=== PATIENT | male | born 1950 | race Caucasian/White ===

== ENCOUNTER 2019-01-04 20:20 | Inpatient (IN) ==
--- NOTE | 2019-01-04 21:51 | Diag Imaging Result Doc PS360 ---
EXAM: CHEST-1 VIEW HISTORY: COUGH TECHNIQUE: Chest single view COMPARISON: 02/08/2015 FINDINGS: The lungs are hyperexpanded. No cardiomegaly. No pulmonary edema. There are increased interstitial markings in the upper lungs. No pleural effusions identified. Scoliosis. IMPRESSION: 1.Increased interstitial markings in the upper lungs likely representing fibrosis although there could be small underlying infiltrates. 2.Emphysema Electronically signed by Krishna Maciel 01/04/2019 9:48 PM
[2019-01-04] MEDS ORDERED: NS 1,000 ML IV ONE ×2 (22:13)
[2019-01-04 22:35] LABS: INFLUENZA A NEGATIVE (NEGATIVE); INFLUENZA B NEGATIVE (NEGATIVE)
[2019-01-04 23:42] LABS: INR 1.07; PROTIME 14.5 Seconds (11.0-16.0)
[2019-01-04 23:43] LABS: PTT 36.4 Seconds (22.3-41.8)
[2019-01-04 23:44] LABS: BASO# 0.01 X1000 (0.0-0.2); BASO% 0.1 % (0.0-0.8); HEMATOCRIT 33.3 % (42.0-52.0); HEMOGLOBIN 11.5 g/dL (14.0-18.0); IMM GRAN# 0.09 X1000 (0.0-0.04); IMM GRAN% 0.5 % (0.0-0.5); LYMPH# 0.23 X1000 (1.2-3.4); LYMPH% 1.3 % (20.5-51.1); MCH 32.2 PG (27-31); MCHC 34.5 g/dL (33-37); MCV 93.3 FL (81-99); MONO# 1.48 X1000 (0.11-0.59); MONO% 8.4 % (1.7-9.3); MPV 9.6 FL (7.4-10.4); NEUT# 15.79 X1000 (1.4-6.5); NEUT% 89.7 % (42.2-75.2); PLT 163 X1000 (130-400); RBC 3.57 XMIL (4.7-6.1); RDW 12.6 % (11.5-14.5)
[2019-01-04 23:53] LABS: AGAP 12; ALBUMIN 4.3 g/dL (3.5-5.0); ALKALINE PHOSPHATASE 104 U/L (32-122); BUN 8 mg/dL (8-22); CALCIUM 8.1 mg/dL (8.8-10.2); CHLORIDE 92 mmol/L (98-107); CK PROFILE 119 U/L (24-204); COSMO 264; CREATININE 0.4 mg/dL (0.7-1.2); ESTIMATED GFR > 60; GLUCOSE 92 mg/dL (70-104); GOT 41 U/L (10-34); GPT 33 U/L (10-44); MAGNESIUM 1.7 mg/dL (1.5-2.7); POTASSIUM 4.6 mmol/L (3.5-5.1); SODIUM 133 mmol/L (136-145); TCO2 30 mmol/L (25-35); TOTAL PROTEIN 6.1 g/dL (6.3-8.3)
[2019-01-05 00:20] LABS: BANDS 11 % (0-1); MONO 3 % (1-9); SEGS 85 % (42-75)
[2019-01-05 00:46] LABS: BILIRUBIN URINE NEGATIVE (NEGATIVE); BLOOD URINE NEGATIVE (NEGATIVE); CLARITY CLEAR (CLEAR); COLOR YELLOW; GLUCOSE URINE NEGATIVE (NEGATIVE); KETONE URINE NEGATIVE (NEGATIVE); LEUKOCYTES URINE NEGATIVE (NEGATIVE); NITRITE URINE NEGATIVE (NEGATIVE); PROTEIN URINE NEGATIVE (NEGATIVE); UROBILINOGEN URINE NORMAL
[2019-01-05 00:49] LABS: URINE BACTERIA 2+ /HFP; URINE CAST NONE SEEN /LPF; URINE CRYSTAL NONE SEEN /HPF; URINE EPITHELIAL CELLS <10 /HPF (<10); URINE RBC <10 /HPF (<10); URINE SOURCE CLEAN CATCH; URINE WBC <10 /HPF (<10); URINE YEAST NONE SEEN /HPF
[2019-01-05] MEDS ORDERED: NS 1,000 ML IV ONE (00:49)
[2019-01-05] MEDS ORDERED: LEVAQUIN PO ONE (00:50)
[2019-01-05] MEDS ORDERED: VANCOMYCIN 1 GM/NS 1 GM/250 ML IVPB IV ONE (00:50)
[2019-01-05] MEDS ORDERED: TYLENOL PO PRN (04:00)
--- NOTE | 2019-01-05 06:54 | EKG Report ---
Test Performed on : 01/04/2019 9:34:59 PM Test Reason : cp Blood Pressure : / mmHG Vent. Rate : 070 BPM Atrial Rate : 070 BPM P-R Int : 166 ms QRS Dur : 056 ms QT Int : 434 ms P-R-T Axes : 082 090 089 degrees QTc Int : 468 ms Normal sinus rhythm. Rightward axis ST elevation, consider early repolarization, pericarditis, or injury Nonspecific ST abnormality Abnormal ECG When compared with ECG of 08-FEB-2015 20:20, Criteria for Anterolateral infarct are no longer present ST elevation now present in Inferior leads Unconfirmed Result
[2019-01-05 09:37] LABS: BASO# 0.01 X1000 (0.0-0.2); BASO% 0.1 % (0.0-0.8); HEMATOCRIT 29.6 % (42.0-52.0); HEMOGLOBIN 10.1 g/dL (14.0-18.0); IMM GRAN# 0.17 X1000 (0.0-0.04); LYMPH# 0.35 X1000 (1.2-3.4); LYMPH% 2.1 % (20.5-51.1); MCH 31.7 PG (27-31); MCHC 34.1 g/dL (33-37); MCV 92.8 FL (81-99); MONO% 5.9 % (1.7-9.3); MPV 9.4 FL (7.4-10.4); NEUT# 15.29 X1000 (1.4-6.5); NEUT% 90.9 % (42.2-75.2); PLT 121 X1000 (130-400); RBC 3.19 XMIL (4.7-6.1); RDW 12.6 % (11.5-14.5); WBC 16.82 X1000 (4.8-10.8)
--- NOTE | 2019-01-05 09:37 | HISTORY AND PHYSICAL ---
PRIMARY CARE PHYSICIAN: None. CHIEF COMPLAINT: Weakness and a subjective fever for the past 2 days that has progressively worsened. HISTORY OF PRESENTING ILLNESS: This is a 68-year-old male who presents to [facility] ER with complaints of generalized weakness and a subjective fever. It is known that patient has a longstanding history of anorexia nervosa and malnutrition, comes in today 5 feet 9 inches tall and weighing 82 pounds. He is very and cachetic. His workup in the emergency room showed on arrival a temperature of 102.2 degrees, a white blood cell count of 17.60. Chest x-ray showed increased interstitial markings in the upper lobes likely representing fibrosis, although there could be a small underlying infiltrate, so he is being admitted for further evaluation and treatment. PAST MEDICAL HISTORY: Right femur fracture, anorexia nervosa, malnutrition, anemia, coronary artery disease with sick sinus syndrome. PAST SURGICAL HISTORY: Right hip repair. FAMILY HISTORY: Coronary artery disease. SOCIAL HISTORY: Currently lives alone, was a former smoker. Denies any alcohol or illicit drug use. ALLERGIES: Penicillin. HOME MEDICATIONS: He does not take any medications on a routine basis according to the patient. LABORATORY DATA: Showed a white blood cell count of 17.60, hemoglobin 11.5, hematocrit 33.3, platelets 163,000. PT and INR of 14.5 and 1.07. Sodium 133, potassium 4.6, chloride 92, CO2 30, BUN of 8, creatinine 0.4, glucose 92, magnesium 1.7. Cardiac enzyme was negative. Total protein was 6.1, albumin of 4.3. Plasma lactate of 1.6. Urinalysis was negative except for 2+ bacteria. Influenza A and B were both negative. IMAGING: Chest x-ray showed increased interstitial markings in the upper lungs, likely representing fibrosis although there could be small underlying infiltrates and emphysema. REVIEW OF SYSTEMS: He had a subjective fever, generalized weakness. Denied any blurred vision, dizziness, chest pain, coughing, shortness of breath. Denied any abdominal pain, constipation, diarrhea, burning or hurting with urination. PHYSICAL EXAMINATION: VITAL SIGNS: On arrival, he had a temperature of 102.2 degrees, pulse of 81, respirations 18, blood pressure 104/61, saturating 97% on room air. Currently his temperature is down to 98.6 degrees. GENERAL: This is a 68-year-old, thin, cachectic male who is sitting up in the bed eating breakfast and answers questions appropriately. HEENT: Normocephalic and atraumatic. Normal ENT inspection. Oropharynx and nares are clear. EYES: Pupils are equal, round, and reactive to light and accommodation. Extraocular movements are intact. NECK: Normal inspection. Normal range of motion. LUNGS: Clear to auscultation bilaterally with equal lung expansion and chest wall movement. O2 via nasal cannula currently in use. HEART: Regular rate and rhythm. No murmurs, rubs, or gallops. ABDOMEN: Soft, nontender, nondistended. Bowel sounds are present x4 quadrants. MUSCULOSKELETAL: He has 3/5 strength x4 extremities. NEUROLOGICAL: The cranial nerves 2-12 appear grossly intact. ASSESSMENT: 1. Bilateral upper lobe pneumonia. 2. Leukocytosis. 3. Generalized weakness. 4. Anorexia nervosa. 5. Protein calorie malnutrition. PLAN: He was admitted to the hospital medical unit, placed on telemetry. Regular diet with Ensure t.i.d. with meals. We will consult Oliver Filter Operator. We will consult bottom finisher. Blood culture and urine cultures are pending. We will place him on Rocephin 1 gram IV q.24, azithromycin 500 IV q.24. He is on normal saline at 50 mL an hour. We will recheck a CBC and a BMP this a.m. and in the a.m. Further orders after he has been seen by attending. Dictated by OLVIN Johnson for Marco Lancaster MD Addendum: Patient seen and examined by myself. Agree with OLVIN note. It reflects my assessment and plan. Patient is being admitted to hospital for bilateral pneumonia so will start broad spectrum antibiotics and will optimize his nutritional status. Will monitor patient closely. cc: OLVIN Johnson MD [facility]
[2019-01-05 09:40] LABS: AGAP 9; BUN 12 mg/dL (8-22); CALCIUM 7.5 mg/dL (8.8-10.2); CHLORIDE 100 mmol/L (98-107); COSMO 269; CREATININE 0.3 mg/dL (0.7-1.2); ESTIMATED GFR > 60; GLUCOSE 83 mg/dL (70-104); POTASSIUM 3.8 mmol/L (3.5-5.1); SODIUM 135 mmol/L (136-145); TCO2 26 mmol/L (25-35)
[2019-01-05 09:48] LABS: LYMPHS 2 % (21-51); MONO 3 % (1-9); SEGS 95 % (42-75)
[2019-01-05] MEDS: ROCEPHIN 1 GM in NS 50 ML IV SCH (10:05)
[2019-01-05] MEDS: ZITHROMAX 500 MG/NS 500 MG/250 ML IVPB IV SCH (11:01)
[2019-01-05] MEDS: DUONEB (A & A) INH SCH ×4 (11:32→22:49)
[2019-01-06] MEDS: DUONEB (A & A) INH SCH ×6 (03:20→23:33)
[2019-01-06] MEDS: ROCEPHIN 1 GM in NS 50 ML IV SCH (09:09)
[2019-01-06] MEDS: ZITHROMAX 500 MG/NS 500 MG/250 ML IVPB IV SCH (09:49)
[2019-01-06] MEDS ORDERED: LIPOSYN 20% 250 ML IV SCH (10:15)
[2019-01-06 10:17] LABS: BASO# 0.01 X1000 (0.0-0.2); BASO% 0.1 % (0.0-0.8); HEMOGLOBIN 10.8 g/dL (14.0-18.0); IMM GRAN# 0.05 X1000 (0.0-0.04); IMM GRAN% 0.4 % (0.0-0.5); LYMPH# 0.17 X1000 (1.2-3.4); LYMPH% 1.3 % (20.5-51.1); MCH 31.5 PG (27-31); MCHC 33.8 g/dL (33-37); MCV 93.3 FL (81-99); MONO# 0.52 X1000 (0.11-0.59); MONO% 3.9 % (1.7-9.3); MPV 9.4 FL (7.4-10.4); NEUT# 12.74 X1000 (1.4-6.5); NEUT% 94.3 % (42.2-75.2); PLT 135 X1000 (130-400); RBC 3.43 XMIL (4.7-6.1); RDW 12.5 % (11.5-14.5); WBC 13.49 X1000 (4.8-10.8)
[2019-01-06] MEDS ORDERED: LIPID EMULSION 20% IV SCH (10:23)
[2019-01-06 10:34] LABS: AGAP 10; BUN 15 mg/dL (8-22); CALCIUM 7.9 mg/dL (8.8-10.2); CHLORIDE 97 mmol/L (98-107); COSMO 262; CREATININE 0.3 mg/dL (0.7-1.2); ESTIMATED GFR > 60; GLUCOSE 106 mg/dL (70-104); POTASSIUM 3.9 mmol/L (3.5-5.1); SODIUM 130 mmol/L (136-145); TCO2 23 mmol/L (25-35)
[2019-01-06 10:55] LABS: LYMPHS 1 % (21-51); SEGS 99 % (42-75)
[2019-01-06 11:18] LABS: OCCULT BLOOD 1 NEGATIVE (NEGATIVE)
[2019-01-06] MEDS: CLINIMIX E 4.25%-5% SOLUTION 1,000 ML IV SCH (11:46)
--- NOTE | 2019-01-06 12:03 | PROGRESS NOTE ---
DATE: 01/06/2019 SUBJECTIVE: The patient reports breathing better. Denies any other complaints. OBJECTIVE: Vital Signs: Temperature 98.6 degrees, heart rate 70, respiratory rate 16, blood pressure 108/62, O2 saturation 100% on 2 L nasal cannula. General Examination: This is a chronically ill-appearing and cachectic, 68-year-old, male lying in bed, in no acute distress. Cardiovascular Examination: S1 and S2 heard. No murmurs, gallops, or rubs. Regular rate and rhythm. Respiratory Examination: A few coarse breath sounds in both pulmonary bases. Patient is not using any accessory muscles or having work of breathing. Abdomen: Soft, nontender to palpation, nondistended. Bowel sounds present. No organomegaly. Extremities: No clubbing, cyanosis, or edema. Marked muscle waste noted in both extremities. Peripheral pulses present in both legs. Neurological Examination: The patient is alert and oriented x3. Moves 4 extremities. Laboratory Data: White cell count 13.49, hemoglobin 10.8, hematocrit 32.0. BMP is remarkable for sodium 130. Rest of the BMP is normal. ASSESSMENT AND PLAN: 1. Bilateral upper lobe pneumonia. Patient is on Rocephin and azithromycin. He clinically is improving. Definitely noting breathing better. White cell count is getting better as well. At this point, we will continue with the same management. We will continue with DuoNeb every 4 hours. He is now on room air. 2. Protein calorie malnutrition and cachexia. I do not know the reason why this patient is very cachectic but I have a feeling that he has been having a poor appetite for a while. I think I will do an abdomen and pelvis CT, start him on Clinimix and will check HIV test and we will go from there. 3. Disposition. We will continue to monitor this patient closely. cc: Marco Lancaster MD MTDD
--- NOTE | 2019-01-06 14:32 | Diag Imaging Result Doc PS360 ---
EXAM: CT THORAX/ABD/PELVIS W/CON INDICATION: cachexia TECHNIQUE: This exam was performed using automated exposure control, adjustment of mA or kV according to patient size, and/or use of iterative reconstruction technique. COMPARISON: CT abdomen and pelvis dated 07/14/2014. No prior CT chest is available for comparison. FINDINGS: CHEST: There are mild emphysematous changes at the right upper lobe near the apex and the superior aspect of the right lower lobe. There are moderate fibrotic changes at the lung apices. There is a masslike lesion in the superomedial right lower lobe abutting the hilum posteriorly. It exhibits some central cavitation. Although an atypical infectious process is possible, this is suspicious for neoplasm. It measures 3.5 x 2.7 cm axially. There are bilateral small pleural effusions and there is bibasilar mild atelectasis. There is no pneumothorax. There is no cardiomegaly. No suspicious bony lesions are identified involving the thorax. ABDOMEN/PELVIS: There is a tiny hypodensity at the posterior medial aspect of the right hepatic lobe that is stable, likely a tiny cyst. The liver is unremarkable, otherwise. The gallbladder, spleen, pancreas, and adrenal glands are grossly unremarkable. There are several tiny renal cysts bilaterally. The urinary bladder is distended and is grossly unremarkable, otherwise. There is a moderate amount of nonspecific fluid density material that is layering in the pelvis. There is no evidence of bowel obstruction and no definite bowel wall thickening. As imaged, the GI tract is grossly unremarkable, otherwise. There is mild patchy aortoiliac atherosclerotic calcification. There is a helical nail and screws associated with the right hip. There is scoliosis and multilevel spondylosis throughout the lumbar spine, stable. There is no suspicious bony lesion identified involving the abdomen or pelvis. IMPRESSION: 1.Masslike lesion in the posterior perihilar right lower lobe with central cavitation. Neoplasm cannot be excluded. 2.Bilateral small pleural effusions and bibasilar atelectasis. 3.Emphysematous changes involving the right upper lung zone and bilateral upper lung zone fibrotic change. 4.Moderate amount of nonspecific fluid density material layering in the pelvis. 5.Other incidental/nonacute findings detailed above. Electronically signed by Rashad Valentin 01/06/2019 2:30 PM
[2019-01-07] MEDS: CLINIMIX E 4.25%-5% SOLUTION 1,000 ML IV SCH ×3 (02:08→12:09)
[2019-01-07] MEDS: DUONEB (A & A) INH SCH ×6 (03:43→23:05)
[2019-01-07] MEDS ORDERED: LIPOSYN 20% 250 ML IV SCH (06:33)
[2019-01-07 07:37] LABS: EOS# 0.02 X1000 (0.0-0.7); EOS% 0.2 % (0.0-10.0); HEMATOCRIT 30.6 % (42.0-52.0); HEMOGLOBIN 10.3 g/dL (14.0-18.0); IMM GRAN# 0.02 X1000 (0.0-0.04); IMM GRAN% 0.2 % (0.0-0.5); LYMPH# 0.14 X1000 (1.2-3.4); LYMPH% 1.7 % (20.5-51.1); MCHC 33.7 g/dL (33-37); MCV 92.2 FL (81-99); MONO# 0.37 X1000 (0.11-0.59); MONO% 4.4 % (1.7-9.3); MPV 9.8 FL (7.4-10.4); NEUT# 7.77 X1000 (1.4-6.5); NEUT% 93.5 % (42.2-75.2); PLT 161 X1000 (130-400); RBC 3.32 XMIL (4.7-6.1); RDW 12.1 % (11.5-14.5); WBC 8.32 X1000 (4.8-10.8)
[2019-01-07 07:52] LABS: AGAP 9; BUN 13 mg/dL (8-22); CALCIUM 8.2 mg/dL (8.8-10.2); CHLORIDE 95 mmol/L (98-107); COSMO 263; CREATININE 0.2 mg/dL (0.7-1.2); ESTIMATED GFR > 60; GLUCOSE 102 mg/dL (70-104); POTASSIUM 3.9 mmol/L (3.5-5.1); SODIUM 131 mmol/L (136-145); TCO2 27 mmol/L (25-35)
--- NOTE | 2019-01-07 08:59 | Diag Imaging Result Doc PS360 ---
EXAM: CHEST-2 VIEWS HISTORY: pna TECHNIQUE: PA and Lateral chest x-ray COMPARISON: 01/04/2019 FINDINGS: There is increased prominence of the right hilar mass. Right apical pleural parenchymal thickening is unchanged. There is a new left pleural effusion. Marked pulmonary emphysema again noted. Heart size is within normal limits. No vascular congestion is identified. IMPRESSION: 1.New left effusion. 2.Increased prominence of right hilar mass. 3.Pleural parenchymal thickening right apex. Electronically signed by Adriana Andres 01/07/2019 8:56 AM
[2019-01-07] MEDS: ROCEPHIN 1 GM in NS 50 ML IV SCH (09:12)
[2019-01-07 09:16] LABS: ANISOCYTOSIS 2+; LYMPHS 8 % (21-51); MONO 5 % (1-9); SEGS 87 % (42-75)
[2019-01-07] MEDS: ZITHROMAX 500 MG/NS 500 MG/250 ML IVPB IV SCH (10:13)
[2019-01-07 16:29] LABS: HIV ANTIBODY SCREEN SEE COMMENTS
--- NOTE | 2019-01-07 19:15 | PROGRESS NOTE ---
DATE: 01/07/2019 SUBJECTIVE: Patient has no real complaints. In fact, states that he does not have any recent weight loss. States that he has a good appetite and that he has been eating well. PHYSICAL EXAMINATION: Vital Signs: Reviewed. He is afebrile. Blood pressure and heart rate are stable. General: Patient is awake, alert. He is in no distress. HEENT: Normocephalic. Neck: Supple. Cardiovascular: Regular rate. Chest: Clear. Currently, no wheezing, no apparent crackles. Abdomen: Soft, nondistended. Extremities: Moves all extremities. ASSESSMENT: 1. Bilateral upper lobe pneumonia. 2. Abnormal CT with effusion, emphysema, fluid in the pelvis. 3. Protein-calorie malnutrition and cachectic in appearance, although patient states that he eats well. Currently, he is on Clinimix and I certainly agree with continuing this for now. 4. Others. PLAN: We will continue patient in the hospital and continue antibiotics. We will attempt to transfer him to [facility] for Pulmonology and possibly Hematology to see him regarding his abnormal CT scan. cc: David Miles MD
[2019-01-08] MEDS: DUONEB (A & A) INH SCH ×7 (03:06→22:55)
[2019-01-08] MEDS: CLINIMIX E 4.25%-5% SOLUTION 1,000 ML IV SCH ×2 (05:30→17:51)
[2019-01-08] MEDS: ROCEPHIN 1 GM in NS 50 ML IV SCH (08:10)
[2019-01-08] MEDS: LIPOSYN 20% 250 ML IV SCH (08:10)
[2019-01-08] MEDS: ZITHROMAX 500 MG/NS 500 MG/250 ML IVPB IV SCH (11:01)
[2019-01-08 11:25] LABS: EOS# 0.01 X1000 (0.0-0.7); EOS% 0.3 % (0.0-10.0); HEMATOCRIT 31.3 % (42.0-52.0); HEMOGLOBIN 10.8 g/dL (14.0-18.0); LYMPH# 0.18 X1000 (1.2-3.4); LYMPH% 4.9 % (20.5-51.1); MCH 31.3 PG (27-31); MCHC 34.5 g/dL (33-37); MCV 90.7 FL (81-99); MONO% 13.7 % (1.7-9.3); MPV 9.4 FL (7.4-10.4); NEUT# 2.97 X1000 (1.4-6.5); NEUT% 81.1 % (42.2-75.2); PLT 163 X1000 (130-400); RBC 3.45 XMIL (4.7-6.1); RDW 11.8 % (11.5-14.5); WBC 3.66 X1000 (4.8-10.8)
[2019-01-08 11:47] LABS: ESTIMATED GFR > 60
[2019-01-08 11:51] LABS: AGAP 9; BUN 13 mg/dL (8-22); CALCIUM 7.9 mg/dL (8.8-10.2); CHLORIDE 86 mmol/L (98-107); COSMO 248; CREATININE 0.3 mg/dL (0.7-1.2); GLUCOSE 96 mg/dL (70-104); POTASSIUM 4.1 mmol/L (3.5-5.1); SODIUM 123 mmol/L (136-145); TCO2 28 mmol/L (25-35)
--- NOTE | 2019-01-08 12:58 | HEMO/ONC CONSULTATION ---
DATE: 01/08/2019 REASON FOR CONSULTATION: We are being consulted for the patient regarding a right hilar mass suspicious for neoplasm. HISTORY OF PRESENT ILLNESS: This is a 68-year-old male, who came to the [facility] ER with complaints of generalized weakness and a fever. He has a longstanding history of anorexia nervosa and malnutrition. He is cachetic, weighing 82 pounds and is 5 feet 9 inches tall. He had a temperature of a 102.2 degrees and white blood cell count of 17. Initial chest x-ray showed increased interstitial markings in the upper lobes likely representing fibrosis. He is being admitted for further evaluation and treatment. He is known to us in the office and we last saw him in 2016 for evaluation of pancytopenia. He stopped coming to his visits at that time. He has now been transferred to the [facility] where we will evaluate. PAST MEDICAL HISTORY: Right femur fracture, anorexia nervosa, malnutrition, anemia, coronary artery disease with sick sinus syndrome, pancytopenia. PAST SURGICAL HISTORY: Right hip repair. SOCIAL HISTORY: Former smoker. Denies alcohol or illicit drug use. ALLERGIES: Penicillin. HOME MEDICATIONS: He denies taking any home medications on a routine basis. REVIEW OF SYSTEMS: Negative, except what is mentioned in HPI. PHYSICAL EXAM: General: Patient is an extremely cachectic, frail, elderly- appearing male. Respiratory: Lungs are clear to auscultation. Normal respiratory effort. Cardiovascular: S1, S2 noted. Regular rate. Abdomen: Soft, nondistended, nontender. Extremities: Moves all extremities. No edema noted. Vital Signs: Temperature 98.3 degrees, pulse rate 61, respiratory rate 18, blood pressure 130/55, oxygen saturations 99% on room air. He has 0/10 pain. LABORATORY: WBCs 8.32, hemoglobin 10.3, hematocrit 30.6, platelet count 161. Sodium 131, potassium 3.9, creatinine 0.2, calcium 8.2. HIV antibody screen nonreactive. RADIOLOGY: 1. A 01/07 chest x-ray shows new left effusion, increased prominence of the right hilar mass and pleural parenchymal thickening of the right apex. CT of the abdomen and pelvis showed masslike lesion in the posterior perihilar right lower lobe with central cavitation. Neoplasm cannot be excluded. 2. Bilateral small pleural effusions and bibasilar atelectasis. 3. Emphysematous changes involving the right upper lung zone and bilateral upper lung zone fibrotic change. ASSESSMENT: 1. Bilateral upper lobe pneumonia. 2. Abnormal CT with effusion, emphysema and fluid in the pelvis. 3. Protein calorie malnutrition and cachectic in appearance, although patient states he eats well. 4. Generalized weakness. 5. Right perihilar mass. 6. Anemia PLAN: Patient needs to remain in the hospital for nutrition and continued antibiotics. Check CEA. We will await Pulmonology's assessment. May need bronchoscopy and biopsy. We will follow the patient. Evaluate anemia with labs, Dictated by OLVIN Proctor for Donovan Bocanegra MD cc: Donovan Bocanegra MD MTDD
[2019-01-08 13:07] LABS: IRON SATURATION 28 %; TIBC 242 ug/dL; TOTAL IRON 67 ug/dL (53-167); UNBOUND IRON 175 ug/dL (112-346)
[2019-01-08] MEDS ORDERED: SAMSCA PO ONE (13:47)
--- NOTE | 2019-01-08 14:05 | PROVIDER PROGRESS NOTE ---
Progress Note Pulmonary additional Note. CT chest seen and discussed with Patient and Dr. Cutler. The findings could be pneumonia around a bleb (has has other ones). It is in a biopsy difficult position for bronchoscopy. He is so under-weight but he mentioned this is a chronic condition. The best route is to treat with antibiotics and obtain PET/repeat imaging as out pt.
--- NOTE | 2019-01-08 14:50 | PROGRESS NOTE ---
DATE: 01/08/2019 SUBJECTIVE: The patient reports feeling fine, not requiring any oxygen supplementation. The patient reports breathing better and having better appetite. OBJECTIVE: Vital Signs: Temperature 97.2 degrees, heart rate 64, respiratory rate 19, blood pressure 129/59, O2 saturation 100% on room air. General: This is a chronically ill-appearing and very cachectic, 68-year-old, male, looking older than his stated age, lying in bed in no acute distress. Cardiovascular: S1, S2 heard. No murmurs, gallops, or rubs. Regular rate and rhythm. Respiratory: Minimal coarse breath sounds noted in both pulmonary bases. The patient is not using any accessory muscles or having work of breathing. Abdomen: Soft, nontender to palpation. Bowel sounds present. No organomegaly. Extremities: No clubbing, cyanosis, or edema. Marked muscle wasting noted in both upper and lower extremities. Peripheral pulses present in both legs. Neurological: Patient alert and oriented x3. Moves 4 extremities. LABORATORY DATA: White cell count 3.66, hemoglobin 10.8, hematocrit 31.3, platelets 163. BMP shows sodium 123. ASSESSMENT AND PLAN: 1. Bilateral lower lobe pneumonia. The patient continues to be on Rocephin and azithromycin. Clinically, the patient is doing better. White cell count is back to normal. At this point, will continue with the same management. 2. Severe protein calorie malnutrition with cachexia. Will continue with protein supplements. 3. Chest mass. We have consulted Pulmonary and Oncology. Awaiting recommendations. 4. Disposition. At this point, Pulmonary and Oncology have been consulted. Will follow recommendations. cc: Marco Lancaster MD MTDD
--- NOTE | 2019-01-08 15:18 | CONSULTATION ---
DATE OF CONSULTATION: 01/08/2019 REQUESTING PROVIDER: Dr. Marco Lancaster. REASON FOR CONSULTATION: Lung mass suspicious for neoplasm. HISTORY OF PRESENT ILLNESS: This is a 68-year-old male with a medical history of right femur fracture, anorexia nervosa, malnutrition, anemia, coronary artery disease with sick sinus syndrome, and OCD with delusional disorder. He presented to the [place] ER on January 04, 2019 with weakness and fever for 2 days. Initial workup in the ER revealed bilateral upper lobe pneumonia. CT thorax/abdomen/pelvis with contrast on January 06, 2019 revealed masslike lesion in the posterior perihilar right lower lobe with central cavitation, bilateral small pleural effusions and bibasilar atelectasis, emphysematous changes involving the right upper lung zone, and bilateral upper lung zone fibrotic change, moderate amount of nonspecific fluid density material layering in the pelvis. He was transferred to our facility last night for Pulmonary and Hematology consultation secondary to abnormal CT scan. The patient currently is lying in bed with no acute distress noted. The patient's daughter is at the bedside. Patient states that he is feeling a lot better. He reports that he only had fever and worsening fatigue, and he has no cough, wheezing, SOB, chills, chest pain, palpitation, poor appetite, unintentional weight change, or bowel habit change. He states that his weight has been pretty stable since he was young. PAST MEDICAL AND SURGICAL HISTORY: 1. Right femur fracture, status post right hip repair. 2. Anorexia nervosa, diagnosed 8 years ago. 3. Malnutrition. 4. Anemia. 5. Coronary artery disease with sick sinus syndrome, Patient was suggested to place a pacemaker. 6. OCD with delusional disorder. FAMILY HISTORY: Patient's father had coronary artery disease and leukemia. SOCIAL HISTORY: The patient moved from [place] to [place] 8 years ago and currently lives in an next to his daughter's house. He was a long time ago. He walks with two canes at home. 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 . ALLERGIES: Penicillin. REVIEW OF SYSTEMS: A 10-point review of systems was conducted and the pertinent is listed within the HPI, otherwise noncontributory. PHYSICAL EXAMINATION: Vital Signs: Temperature 98.3, blood pressure 130/55, pulse 61, respiratory rate 15, oxygen saturation 99% on room air. General: severely malnourished and chronically ill-appearing; very pleasant and cooperative; lying in bed with no acute distress noted; HEENT: Atraumatic. Trachea midline. Mucosa pink, moist. Respiratory: Respirations even and unlabored. Symmetrical excursion. Clear to auscultation. Cardiovascular: Regular rate and rhythm with no murmur noted. Gastrointestinal: Normoactive bowel sounds in all 4 quadrants. Soft, nontender, flat. Extremities: No pedal edema. No cyanosis. No clubbing. Dry and flaky skin; Dorsalis pedis 2+ bilaterally. Neurologic: Alert and oriented x4. Speech fluent. Follows commands. ASSESSMENT: This is a 68-year-old male with a medical history of a right femur fracture, anorexia nervosa, malnutrition, anemia, coronary artery disease with sick sinus syndrome, and OCD with delusional disorder. He has been admitted to [facility] since January 05, 2019 with bilateral upper lobe pneumonia. Chest/abdominal/pelvic CT with contrast on January 06, 2019 showed masslike lesion in the posterior perihilar right lower lobe with central cavitation, so he has been transferred to our facility last night for Pulmonology and Hematology consultation. 1. Posterior perihilar right lower lobe lung mass with central cavitation. 2. Bilateral small pleural effusions with bibasilar atelectasis. 3. Chronic obstructive pulmonary disease with emphysematous changes 4. Fibrotic changes in bilateral upper lung zones. 4. Bilateral upper lobe pneumonia. 5. Anorexia nervosa. 6. Cachexia. PLAN: 1. Continue antibiotic and bronchodilators. 2. The mass measures 3.5 x 2.7 cm. Consider outpatient PET scan or repeat CT scan within 3 months. 3. Will follow up with CBC, and BMP. 4. Check chest x-ray and ABG if indicated. 5. Further recommendations pending hospital course. Thank you for the courtesy of this consult. Dictated by OLVIN Schneider for Sree Gray MD cc: OLVIN Schneider MD [facility]
--- NOTE | 2019-01-08 17:35 | PROVIDER DOCUMENTATION ---
This chart was entered by Misa Valentin Scribe, acting as scribe for Bria Greene CRNP. HPI-General Adult - General Chief Complaint: Weakness Stated Complaint: WEAKNESS Time Seen by Provider: 01/04/19 21:05 Source: patient Allergies/Adverse Reactions: Patient Allergies Allergy/AdvReac Type Severity Reaction Status Date / Time Penicillins Allergy Severe RASH Verified 01/04/19 20:33 Home Medications: Home Medication List Medication Instructions Recorded Confirmed Last Taken Type NK [No Home Medications] 01/05/19 01/05/19 Unknown History - History of Present Illness -Gen Adult Nature of Presenting Problems: 68 yom presents to er w/cc weakness x 2 days. pt is very thin and admits to having a poor appetite for "a while." pt denies sob, n/v, and cough. pt sts he has hx of heart murmur and was being seen for anemia but hasn't kept up w/tx. HE REPORT HE WEIGHS APROX 70#, HE WALKS DAILY pt has allergy to penicillin. pt daughter is at bedside. Review of Systems - Adult - REVIEW OF SYSTEMS - ADULT Constitutional: reports: see HPI, other (weakness) Eyes: reports: no symptoms reported Ears, Nose, Mouth & Throat: reports: no symptoms reported Cardiovascular: reports: no symptoms reported Respiratory: reports: no symptoms reported Gastrointestinal: reports: see HPI, poor appetite. denies: abdominal pain, diarrhea, vomiting Genitourinary: reports: no symptoms reported Musculoskeletal: reports: no symptoms reported Integumentary: reports: no symptoms reported Neurological: reports: no symptoms reported Psychiatric: reports: no symptoms reported Endocrine: reports: no symptoms reported Hematologic/Lymphatic: reports: no symptoms reported Allergic/Immunologic: reports: no symptoms reported All Other Systems: Reviewed and Negative Past History - Adult - PAST MEDICAL HISTORY-ADULT Review of Records: reports: Old Records Reviewed, Nursing Assessment Review, Medications Reviewed, Social history reviewed & non-contributory. Major Childhood Illnesses: reports: denies history Cardiovascular: reports: CAD (sick sinus syndrome) Respiratory: reports: denies history Gastrointestinal: reports: denies history Obstetrical/Gynecological: reports: denies history Genitourinary: reports: denies history Musculoskeletal: reports: denies history Neurological: reports: denies history Psychiatric: reports: psychiatric problems Endocrine/Immune: reports: denies history Other Conditions: reports: denies history - PRIOR SURGERIES/PROCEDURES Surgical/Procedure History: reports: other (left eye) - IMMUNIZATION STATUS Childhood Immunizations: See Nurse Assessment Flu Vaccine: See Nurse Assessment - FAMILY HISTORY Family History: reviewed, not pertinent - SOCIAL HISTORY Smoking: other (former smoker) Substance Use: none/never Physical Exam-General - PHYSICAL EXAM-ADULT Initial Vital Signs Reviewed: Yes - CONSTITUTIONAL General Appearance: alert, mild distress, thin (pt thin and frail.). negative: obese, anxious, combative - EYES Eyes: PERRL/EOMI, pink conjunctivae - HEAD, EARS, NOSE, MOUTH & THROAT HENMT: normocephalic/atraumatic, moist mucous membranes, normal ENT inspection - NECK Neck: non-tender, full range of motion, supple, normal inspection - RESPIRATORY Respiratory: chest non-tender, lungs clear, normal breath sounds - CARDIOVASCULAR Cardiovascular: normal peripheral pulses, regular rate, rhythm - GASTROINTESTINAL (ABDOMEN) Abdominal Exam: normal bowel sounds, non tender, soft - MUSCULOSKELETAL Back Exam: normal inspection, no CVA tenderness, no vertebral tenderness Extremity: normal range of motion, non-tender, normal inspection Peripheral Pulses: radial (R): 2+, radial (L): 2+ - SKIN Integumentary: normal color, normal turgor, warm/dry - NEUROLOGIC Neurologic: natural resource manager II-XII nml as tested, grossly normal, no motor/sensory deficits - PSYCHIATRIC Psych/Mental Status: normal mood/affect, normal thought content, normal thought process, oriented x 3 Progress - PLAN OF CARE/RESULTS Progress/Plan/Lab Results: Vital Signs - 8 hr 01/04/19 20:25 Temperature 102.2 F H Pulse Rate 81 Respiratory Rate 18 Blood Pressure 104/61 O2 Sat by Pulse Oximetry 97 Orders Category Date Time Status Cardiac Monitoring DIRECTED Care 01/04/19 20:50 Active IV Insertion ORDERED Care 01/04/19 20:50 Active Notify MD of + Sepsis Screen NOW Care 01/04/19 20:50 Active Notify Physician As Ordered Care 01/04/19 20:50 Active Saline Loc NOW Care 01/04/19 20:52 Active CHEST-1 VIEW [RAD] Stat Exams 01/04/19 20:[address] HEAD W/O CONTRAST [CT] Stat Exams 01/04/19 20:52 Ordered BLOOD CULTURE [BLDCUL] Stat Lab 01/04/19 20:50 Uncollected CBC WITH DIFF [HEME] Stat Lab 01/04/19 20:50 Uncollected CK PROFILE [SP CHEM] Stat Lab 01/04/19 20:50 Uncollected COMPREHENSIVE METABOLIC PANEL [CHEM] Stat Lab 01/04/19 20:50 Uncollected LACTATE, PLASMA [CHEM] Q3H Lab 01/04/19 21:00 Uncollected LACTATE, PLASMA [CHEM] Q3H Lab 01/05/19 00:00 Uncollected LACTATE, PLASMA [CHEM] Q3H Lab 01/05/19 03:00 Uncollected MAGNESIUM [CHEM] Stat Lab 01/04/19 20:51 Uncollected PROTIME WITH INR [COAG] Stat Lab 01/04/19 20:50 Uncollected PTT [COAG] Stat Lab 01/04/19 20:50 Uncollected TROPONIN T Stat Lab 01/04/19 20:[address] W/POSS RFLX CULT [URINALYSIS] Stat Lab 01/04/19 20:50 Uncollected Oxygen Device Stat Oth 01/04/19 20:50 Active Result Diagrams: 01/08/19 11:17 01/08/19 11:17 - EKG 1 Time of EKG reading by physician:: 21:37 EKG Read and Signed by:: Sebastian Pacheco EKG Interpretation (*Must complete 3 of following elements*): Abnormal Rate: 76 Rhythm: SR [place]: right QRS: normal [place] Interval: normal ST Wave: non-specific ST changes - XRAY 1 XRAY Study: Chest Impression: See EMR Report (COMPARISON: 02/08/2015 FINDINGS: The lungs are hyperexpanded. No cardiomegaly. No pulmonary edema. There are increased interstitial markings in the upper lungs. No pleural effusions identified. Scoliosis. IMPRESSION: 1.Increased interstitial markings in the upper lungs likely representing fibrosis although there could be small underlying infi ltrates. 2.Emphysema) - CONSULTS/PCP/HOSPITALIST Notification #1 *Consult/PCP/Hospitalist*: DR CHRISTENSEN Time Discussed: 00:45 Consult Disposition: Admit Departure - Departure Date of Disposition Decision: 01/05/19 Time of Disposition Decision: 00:51 DIAGNOSIS: Weakness, Malnutrition, Leukocytosis, Fever of unknown origin Disposition: ADMITTED INPATIENT 09 Certified Medical Emergency: Emergent Condition: Stable - Critical Care Note This patient required my direct & personal management of CC.: No Attestation - Physician/ MARIAH Attestation Patient care was provided by Advanced Practice Provider:: Yes Advanced Practice Provider:: Bria Greene Advanced Practice Provider documentation review:: The Mid-level provider documentation, treatment plan and medical decision making was reviewed by the physician who agrees with all treatment and medical decision making by the MLP. The physician spent face to face time with patient:: No Advanced Practice Provider documentation review:: Supervising physician onsite and consulted in the evaluation and care of this patient. The physician did not have a face to face encounter with the patient. This chart was documented by the indicated scribe, (Misa Valentin Scribe) and accurately reflects the services I performed and decisions made by me, Bria Greene CRNP, as attested by the provider's signature.
[2019-01-09] MEDS: DUONEB (A & A) INH SCH ×2 (03:22→07:46)
[2019-01-09] MEDS: CLINIMIX E 4.25%-5% SOLUTION 1,000 ML IV SCH (05:48)
[2019-01-09 07:47] LABS: AGAP 9; BUN 17 mg/dL (8-22); CALCIUM 9.2 mg/dL (8.8-10.2); CHLORIDE 98 mmol/L (98-107); COSMO 272; CREATININE 0.4 mg/dL (0.7-1.2); ESTIMATED GFR > 60; GLUCOSE 69 mg/dL (70-104); POTASSIUM 4.3 mmol/L (3.5-5.1); SODIUM 136 mmol/L (136-145); TCO2 29 mmol/L (25-35)
[2019-01-09 08:01] LABS: BASO# 0.01 X1000 (0.0-0.2); BASO% 0.2 % (0.0-0.8); EOS# 0.02 X1000 (0.0-0.7); EOS% 0.4 % (0.0-10.0); HEMATOCRIT 34.9 % (42.0-52.0); HEMOGLOBIN 12.2 g/dL (14.0-18.0); IMM GRAN# 0.02 X1000 (0.0-0.04); IMM GRAN% 0.4 % (0.0-0.5); LYMPH# 0.25 X1000 (1.2-3.4); LYMPH% 5.4 % (20.5-51.1); MCH 32.4 PG (27-31); MCV 92.6 FL (81-99); MONO# 0.67 X1000 (0.11-0.59); MONO% 14.5 % (1.7-9.3); MPV 9.6 FL (7.4-10.4); NEUT# 3.64 X1000 (1.4-6.5); NEUT% 79.1 % (42.2-75.2); PLT 199 X1000 (130-400); RBC 3.77 XMIL (4.7-6.1); RDW 12.3 % (11.5-14.5); WBC 4.61 X1000 (4.8-10.8)
[2019-01-09] MEDS: LIPOSYN 20% 250 ML IV SCH (08:25)
[2019-01-09] MEDS ORDERED: FOLIC ACID PO SCH (09:00)
--- NOTE | 2019-01-09 09:40 | HEMO/ONC PROGRESS NOTE ---
DATE: 01/09/2019 SUBJECTIVE: Mr. Berry is sitting up in bed, eating his breakfast. He is a very pleasant gentleman who has no complaints. He denies any pain. He states he has not had any fevers. He wishes to go home and continue to get better. He states he feels so much better than when he first arrived. He has a good appetite. He denies intentionally being anorexic. OBJECTIVE: Vital Signs: Temperature 97.3 degrees, pulse rate 66, respiratory rate 17, blood pressure 123/45, O2 saturation 100% on room air. He is in 0/10 pain. Physical Examination: General: Extremely cachectic, ill-appearing gentleman in no acute distress. Respiratory: Lungs are clear to auscultation. Normal respiratory effort. Cardiovascular: S1, S2. Regular rate and rhythm. Gastrointestinal: Abdomen is soft, nontender, nondistended. Bowel sounds are present. Appetite is good. Extremities: No edema noted. Muscle wasting apparent. Able to move all 4 extremities. Neurological: Awake, alert, and oriented x3. Walks with a normal gait. Laboratory: WBCs 4.61, hemoglobin 12.2, hematocrit 34.9, platelet count 199,000. Creatinine 0.4. CEA 3.4. Folate 2.6. ASSESSMENT: 1. Bilateral upper lobe pneumonia. 2. Abnormal CT with effusion, emphysema, and fluid in the pelvis. 3. Protein calorie malnutrition and cachectic in appearance. 4. Generalized weakness. 5. Right perihilar mass. 6. Anemia. PLAN: The patient's CEA is 3.4. We appreciate Dr. Gray's assessment. He believes the biopsy would be too difficult to obtain at this time. We agree to treat patient with antibiotics and see him in the office for possible PET scan. Repeat imaging as necessary as an outpatient. Dictated by OLVIN Proctor for Donovan Bocanegra MD cc: Donovan Bocanegra MD [facility]
[2019-01-09] MEDS: ROCEPHIN 1 GM in NS 50 ML IV SCH (10:04)
[2019-01-09] MEDS: ZITHROMAX 500 MG/NS 500 MG/250 ML IVPB IV SCH (10:32)
[2019-01-09 11:56] VITALS: BP 129/55
--- NOTE | 2019-01-10 02:58 | DISCHARGE SUMMARY ---
ADMISSION DATE: 01/05/2019 DISCHARGE DATE: 01/09/2019 DIAGNOSES: 1. Bilateral upper lobe pneumonia. 2. Severe protein calorie malnutrition with cachexia. 3. Chest mass, right perihilar. CONSULTANTS: 1. Dr. Gray, pulmonology. 2. Dr. Donovan Bocanegra, hematology/oncology. DIAGNOSTICS: 1. Chest x-ray revealed interstitial markings in the upper lobes likely representing fibrosis although there could be some underlying infiltrates and emphysema. 2. CT of the chest, abdomen and pelvis revealed masslike lesion in the posterior perihilar right lower lobe with central cavitation. Neoplasm cannot be excluded. Bilateral small pleural effusions and bibasilar atelectasis, emphysematous changes involving the right upper lung zone and bilateral upper lung zone fibrotic change. Moderate amount of nonspecific fluid density material lying in the pelvis. 3. Microbiology: Urine culture revealed mixed alfonzo. Blood cultures x2 revealed no growth after 48 hours. HOSPITAL COURSE: Mr. Berry presented to the emergency room with weakness and subjective fever for 2 days. He was found to have bilateral upper lobe pneumonia with a right hilar mass. He was evaluated by Dr. Gray as well as Dr. Bocanegra. Dr. Gray felt that this mass was not in a place for a biopsy to be obtained by bronchoscopy. Dr. Bocanegra agreed and recommended that the patient be treated for his pneumonia and then follow up in the office for outpatient PET scan. He did have an initial white count of 17, it is 4.6 today. He presented with a temperature of a 102.2 degrees. He has been afebrile since shortly after admission. He is cachectic, being 5 foot 9 inches and 96 pounds, although he states that he has had a good appetite and he has been eating well. He did receive Clinimix while in the hospital. HIV 1 and 2 antibody screen was obtained, which returned nonreactive. He initially received antibiotic coverage of Rocephin and azithromycin and is being discharged on Omnicef. DISCHARGE VITAL SIGNS: Blood pressure is 129/55 with heart rate of 83, respirations 18, temperature 97.5 degrees oral with room air saturations 98 to 100. PHYSICAL EXAMINATION: Cardiovascular: Regular rate and rhythm. S1 and S2 appreciated. He has no lower extremity edema. Peripheral pulses are palpable x4 extremities. Calves are nontender to palpation. He does have marked muscle wasting in upper and lower extremities. Pulmonary: Breath sounds are clear with no increased work of breathing noted. Chest rise and fall symmetric with respiration. Gastrointestinal: Abdomen is soft, nontender, nondistended with bowel sounds in all 4 quadrants. Neurologic: He is alert and oriented. DISCHARGE MEDICATIONS: DuoNeb q.4 hours p.r.n. wheezing, folic acid 1 mg p.o. daily, Omnicef 300 mg p.o. b.i.d. for 10 days and Liquacel liquid protein packet, he is to take 30 mL p.o. t.i.d. as directed. FOLLOW-UP: 1. Dr. Donovan Bocanegra in a week. 2. Dr. Gray in a week. 3. He needs to call and schedule appointments to both of these physicians. 4. Dr. Fatima, his primary care physician. His daughter will make an appointment. 5. He will be followed by [facility]. 6. They have been instructed to call to be seen sooner or return to the ER for any syncope, dizziness, chest pain, palpitations, any cough, temperature greater than 101, any chills, any nausea, vomiting, diarrhea, constipation, black or bloody vomitus or stools, any hematuria, dysuria, frequency, urgency or for any questions or concerns they may have. 7. He is being discharged home in stable condition with family members. TIME SPENT: This is a greater than 30 minute discharge. Dictated by OLVIN Coleman for Marco Lancaster MD Addendum: Patient seen and examined by myself. Agree with OLVIN note. It reflects my assessment and plan. Patient is being discharged in stable condition. Patient going to be seen by Pulmonary and Oncology as outpatient. cc: OLVIN Coleman MD Bhavna Gowda, MD MTDD
== END 2019-01-09 16:42 | disposition home health service (06) | DRG 871 ==
LOC: P.ED 20:20 → SUATTDRO 01-05 02:19 → P.MEDSURG 01-05 02:19 → 3N 01-07 21:47
PROVIDERS: ATTEND Internal Medicine
CPT/HCPCS: 71010; 71020; 71045; 71046; 71260; 74177; 80048; 80053; 81001; 82270; 82378; 82550; 82607; 82728; 82746; 83540; 83550; 83605; 83735; 84484; 85025; 85610; 85730; 86701; 87040; 87088; 87275; 87276; 87389; 87804; 93005; 94640; 94761; 96361; 96365; 97162; 97530; 99285; A9270; J0456; J0696; J3370; J7030; Q9967